=== PATIENT | female | born 1990 | race Caucasian/White ===

== ENCOUNTER 2016-07-14 10:21 | Emergency (ER) | payer BC ==
--- NOTE | 2016-07-14 12:41 | UC ---
Lower Extremity/Ankle HPI - HPI Summary HPI Summary: patient was walking down stairs yesterday. she slipped and knee went sideway, had some immediate painand swelling which has completely subsided. pain at a 2 at this time. no swelling. - History of Current Complaint Stated Complaint: RIGHT KNEE COMPLAINT Time Seen by Provider: 07/14/16 12:30 Hx Obtained From: Patient Hx Last Menstrual Period: 01/28/16 ?: No Onset/Duration: Sudden Onset, Lasting Hours Severity Initially: Moderate Severity Currently: Mild Pain Intensity: 2 Pain Scale Used: 0-10 Numeric Aggravating Factor(s): Nothing Alleviating Factor(s): Rest Able to Bear Weight: Yes - Risk Factors Gout Risk Factors: Negative DVT Risk Factors: Negative Septic Arthritis Risk Factor: Negative - Allergies/Home Medications Allergies/Adverse Reactions: Allergies Allergy/AdvReac Type Severity Reaction Status Date / Time No Known Allergies Allergy Verified 02/11/16 18:30 PMH/Surg Hx/FS Hx/Imm Hx Previously Healthy: Yes - Surgical History Surgical History: None - Family History Known Family History: Negative: Blood Disorder - no hx blood clots - Social History Alcohol Use: Occasionally Substance Use Type: None Smoking Status (MU): Never Smoked Tobacco Review of Systems Constitutional: Negative Skin: Negative Eyes: Negative ENT: Negative Respiratory: Negative Cardiovascular: Negative Gastrointestinal: Negative Genitourinary: Negative Motor: Negative Neurovascular: Negative Musculoskeletal: Arthralgia Neurological: Negative Psychological: Negative All Other Systems Reviewed And Are Negative: Yes Physical Exam Triage Information Reviewed: Yes Appearance: Well-Appearing, No Pain Distress, Well-Nourished Vital Signs Reviewed: Yes Eye Exam: Normal Eyes: Positive: Conjunctiva Clear ENT Exam: Normal ENT: Positive: Normal ENT inspection, Pharynx normal, TMs normal Dental Exam: Normal Neck exam: Normal Neck: Positive: Supple, Nontender, No Lymphadenopathy Respiratory Exam: Normal Respiratory: Positive: Chest non-tender, Lungs clear, Normal breath sounds Cardiovascular Exam: Normal Cardiovascular: Positive: RRR, No Murmur, Pulses Normal Abdominal Exam: Normal Abdomen Description: Positive: Nontender, No Organomegaly, Soft Bowel Sounds: Positive: Present Musculoskeletal Exam: Normal Musculoskeletal: Positive: Strength Intact, ROM Intact, No Edema, Other: - unable to reproduce pain, patient able to walk, squat, jump, no palpable tenderness or swelling, no brusing visible, no crepitus Neurological Exam: Normal Neurological: Positive: Alert, Muscle Tone Normal Psychological Exam: Normal Skin Exam: Normal Lower Extremity Course/Dx - Course Course Of Treatment: history obtained, exam performed, no further treatment given at this time. referred to Dr bolaños if any increase in pain or swelling. - Differential Dx/Diagnosis Differential Diagnosis/HQI/PQRI: Bursitis, Contusion, Dislocation, Fracture ( Closed), Sprain, Strain, Tendonitis Provider Diagnoses: right knee pain Discharge - Discharge Plan Condition: Stable Disposition: HOME Patient Education Materials: Knee Pain (ED) Forms: *School Release Referrals: Yair Nicolas DO [Primary Care Provider] - Randal Bolaños MD [Medical Doctor] - Additional Instructions: You seem to have recovered well from your tripping incident yesterday. If any pain or swelling returns I recommend follow up with Dr Bolaños, orthopedics. In the mean time, Ibuprofen or Yylenol for pain and swelling.
[2016-07-14 12:52] VITALS: BP 126/79
== END 2016-07-14 12:59 | disposition home or self-care (01) ==
LOC: UCCORT 10:21
DX: M25.561 Pain in right knee (principal)
CPT/HCPCS: 99211; G0463

== ENCOUNTER 2016-09-29 12:17 | Emergency (ER) | payer BC ==
[2016-09-29 13:41] VITALS: BP 122/77
--- NOTE | 2016-09-29 14:12 | UC ---
Lower Extremity/Ankle HPI - HPI Summary HPI Summary: cmoplaint of left foot pain that started 3 weeks ago pain in ankle 16 mile run yesterday woke up this morning with pain in left foot lateral side difficult to ambulate this morning hurts to put pressure constant aching pain that raidtes in to lateral sode of ankle deneis any trauma hasn't taken any medication for pain today - History of Current Complaint Chief Complaint: UCLowerExtremity Stated Complaint: LEFT ANKLE INJURY Time Seen by Provider: 09/29/16 14:06 Hx Last Menstrual Period: 2 WEEKS - Allergies/Home Medications Allergies/Adverse Reactions: Allergies Allergy/AdvReac Type Severity Reaction Status Date / Time No Known Allergies Allergy Verified 09/29/16 13:41 Home Medications: Home Medications Ethynodiol Diacet & Eth Estrad [Kelnor 1-35 mg-Mcg] 1 tab PO DAILY [History Confirmed 09/29/16] PMH/Surg Hx/FS Hx/Imm Hx Previously Healthy: Yes - Surgical History Surgical History: None - Family History Known Family History: Positive: Diabetes Negative: Cardiac Disease, Hypertension, Blood Disorder - no hx blood clots - Social History Occupation: Student Lives: With Family Alcohol Use: Occasionally Substance Use Type: None Smoking Status (MU): Never Smoked Tobacco Review of Systems Constitutional: Negative Skin: Negative Eyes: Negative ENT: Negative Respiratory: Negative Cardiovascular: Negative Gastrointestinal: Negative Genitourinary: Negative Motor: Negative Neurovascular: Negative Musculoskeletal: Other: - left foot pain Neurological: Negative Psychological: Negative All Other Systems Reviewed And Are Negative: Yes Physical Exam Triage Information Reviewed: Yes Appearance: No Pain Distress, Well-Nourished Vital Signs: Initial Vital Signs Temp 99.9 F 09/29/16 13:36 Pulse 53 09/29/16 13:36 Resp 16 09/29/16 13:36 BP 122/77 09/29/16 13:36 Vital Signs Reviewed: Yes Eyes: Positive: Conjunctiva Clear ENT: Positive: Pharynx normal, TMs normal. Negative: Nasal congestion Neck: Positive: No Lymphadenopathy Respiratory: Positive: Lungs clear, Normal breath sounds, No respiratory distress Cardiovascular: Positive: RRR, No Murmur, Pulses Normal Abdomen Description: Positive: Nontender, Soft Bowel Sounds: Positive: Present Musculoskeletal: Positive: Other: - LLE- foot No bony deformities, slight erythema and tenderness over 5th metacarpal Full ROM dorsi/plantar flexion, inversion & eversion. Clifton test negative. Neurological: Positive: Alert Psychological Exam: Normal Skin Exam: Normal Lower Extremity Course/Dx - Course Course Of Treatment: exam completed. x-ray is negative. will refer to hre previous orthopedist for further evaluation and treatment - Differential Dx/Diagnosis Differential Diagnosis/HQI/PQRI: Fracture (Closed), Sprain, Strain Provider Diagnoses: right foot contusion Discharge - Discharge Plan Condition: Stable Disposition: HOME Patient Education Materials: Foot Sprain (ED), Foot Contusion (ED), RICE Therapy (ED) Referrals: Jay Strauss DO [Primary Care Provider] - [facility] [Outside] Additional Instructions: Please call computer customer support specialist for an appointment. They will evaluate and determine your treatment. It is important to rest your foot. Take acetaminophen or ibuprofen to control pain and reduce inflammation. Please review your discharge instructions. If your symptoms worsen call computer customer support specialist or return to urgent care.
--- NOTE | 2016-09-29 14:32 | RAD ---
INDICATION: Left foot pain. TECHNIQUE: 3 views of the left foot were obtained. FINDINGS: The bones are in normal alignment. No fracture is seen. Joint spaces appear maintained. IMPRESSION: NO EVIDENCE FOR FRACTURE.
== END 2016-09-29 15:04 | disposition home or self-care (01) ==
LOC: UCCORT 12:17
DX: S90.32XA Contusion of left foot, initial encounter (principal); X58.XXXA Exposure to other specified factors, initial encounter; Y93.9 Activity, unspecified; Y92.9 Unspecified place or not applicable
CPT/HCPCS: 99211; G0463

== ENCOUNTER 2017-07-10 13:39 | Emergency (ER) | payer BC ==
[2017-07-10 14:31] VITALS: BP 130/78
--- NOTE | 2017-07-10 15:05 | UC ---
UC General HPI - HPI Summary HPI Summary: Pt presents with sudden onset of fever chills and lower abdominal/pelvic pain. Pt had endometrial biopsy and hysteroscopy yesterday. Pt called OB provider and was told to come here or go to ER - History of Current Complaint Chief Complaint: UCGeneralIllness Stated Complaint: FEVER 100 Time Seen by Provider: 07/10/17 14:41 Hx Obtained From: Patient Hx Last Menstrual Period: May 2017 Onset/Duration: Sudden Onset, Still Present Timing: Constant Onset Severity: Moderate Current Severity: Moderate Associated Signs & Symptoms: Positive: Fever - Allergy/Home Medications Allergies/Adverse Reactions: Allergies Allergy/AdvReac Type Severity Reaction Status Date / Time No Known Allergies Allergy Verified 07/10/17 14:23 PMH/Surg Hx/FS Hx/Imm Hx Previously Healthy: Yes - Surgical History Surgical History: Yes Surgery Procedure, Year, and Place: 07/09/17 Endometrial biopsy - Family History Known Family History: Positive: Diabetes Negative: Cardiac Disease, Hypertension, Blood Disorder - no hx blood clots - Social History Occupation: Student Lives: With Family Alcohol Use: Occasionally Substance Use Type: None Smoking Status (MU): Never Smoked Tobacco Have You Smoked in the Last Year: No - Immunization History Most Recent Influenza Vaccination: 2016 Review of Systems Constitutional: Fever, Chills, Fatigue Skin: Negative Eyes: Negative ENT: Negative Respiratory: Negative Cardiovascular: Negative Gastrointestinal: Abdominal Pain Genitourinary: Negative Motor: Negative Neurovascular: Negative Musculoskeletal: Myalgia Neurological: Negative Psychological: Negative Is Patient Immunocompromised?: No All Other Systems Reviewed And Are Negative: Yes Physical Exam Triage Information Reviewed: Yes Appearance: Ill-Appearing Vital Signs: Initial Vital Signs Temp 100.4 F 07/10/17 14:24 Pulse 102 07/10/17 14:24 Resp 16 07/10/17 14:24 BP 130/78 07/10/17 14:24 Pulse Ox 99 07/10/17 14:24 Vital Signs Reviewed: Yes Eye Exam: Normal ENT Exam: Normal Dental Exam: Normal Neck exam: Normal Respiratory Exam: Normal Cardiovascular Exam: Normal Abdominal Exam: Other Abdomen Description: Positive: Other: - suprapubic tenderness Musculoskeletal Exam: Normal Neurological Exam: Normal Psychological Exam: Normal Skin Exam: Normal Course/Dx - Differential Dx - Multi-Symptom Differential Diagnoses: Sepsis, Urinary Tract Infection, Other - infection s/p biopsy Provider Diagnoses: Fever. biopsy infection? Discharge - Discharge Plan Condition: Stable Disposition: HOME Patient Education Materials: Fever in Adults (ED) Referrals: Kassidy Dejesus MD [Medical Doctor] - As Soon As Possible Jay Strauss DO [Primary Care Provider] - If Needed Additional Instructions: Please go directly to the closest Emergency room for further evaluation and testing.
== END 2017-07-10 15:25 | disposition home or self-care (01) ==
LOC: UCCORT 13:39
DX: R50.9 Fever, unspecified (principal)
CPT/HCPCS: 81003; 87502; 99212; G0463